=== PATIENT | male | born 1945 | race Caucasian/White ===

== ENCOUNTER → 2018-06-02 | Outpatient (CLI) | payer OTHER ==
[~2018-06-02] MED LIST: ASPI325 PO; BENA10; Bactrim Ds Tab1 EACH PO; CLOP75 PO; DICY20 PO; HYDCHL12.5 PO; LISI20 PO; LORA2 PO; METO50 PO; METO50ER PO; METR500 PO; NAPR500 PO; NIFE30ER PO; RANI150 PO; ROSU10TA PO
[2018-06-02 10:43] LABS: BASOPHILS ABSOLUTE AUTO 0.05 K/mm3 (0.00-0.23); BASOPHILS PERCENT AUTO 1 % (0-2); EOSINOPHILS ABSOLUTE AUTO 0.02 K/mm3 (0.00-0.68); EOSINOPHILS PERCENT AUTO 0 % (0-6); Hematocrit 48.3 % (37.0-53.0); Hemoglobin 17.1 g/dL (13.5-17.5); IMMATURE GRAN ABSOLUTE AUTO 0.01 K/mm3 (0.00-0.10); IMMATURE GRAN PERCENT AUTO 0 % (0-1); LYMPHOCYTES ABSOLUTE AUTO 0.75 K/mm3 (0.84-5.20); LYMPHOCYTES PERCENT AUTO 13 % (21-46); MONOCYTES PERCENT AUTO 9 % (4-13); Mean Corpuscular HGB 33.8 pg (26.0-34.0); Mean Corpuscular HGB Conc 35.4 g/dL (31.5-36.5); Mean Corpuscular Volume 96 fL (80-100); Mean Platelet Volume 10.8 fL (9.1-12.4); NEUTROPHILS ABSOLUTE AUTO 4.31 K/mm3 (1.96-9.15); NEUTROPHILS PERCENT AUTO 76 % (41-73); Platelet Count 138 K/mm3 (150-400); RDW Coefficient Variation 13.4 % (11.7-14.2); RDW Standard Deviation 47.1 fL (35.1-46.3); Red Blood Cell Count 5.06 M/mm3 (4.30-5.90); White Blood Cell Count 5.64 K/mm3 (4.00-11.30)
[2018-06-02 10:55] LABS: Alanine Aminotransfer (ALT/SGP 67 U/L (12-78); Albumin, Blood 4.1 g/dL (3.4-5.0); Alk Phos 102 U/L (40-126); Anion Gap 14 mmol/L (6-16); Aspartate Aminotrans (AST/SGOT 73 U/L (12-37); Blood Urea Nitrogen 7 mg/dL (8-24); Bun/Creatinine Ratio 7.2 (12.0-20.0); CO2, Blood 21 mmol/L (21-32); Chloride, Blood 102 mmol/L (98-108); Creatinine, Blood 0.97 mg/dL (0.60-1.20); Glomerular Filtration Rate >60 (60-); Glucose, Blood 111 mg/dL (70-99); Potassium, Blood 4.1 mmol/L (3.5-5.5); Sodium, Blood 137 mmol/L (136-145); Total Protein, Blood 8.1 g/dL (6.4-8.2)
== END ==
LOC: LAB SHORT 10:39
PROVIDERS: Physician Assistant Medical
DX: R10.84 Generalized abdominal pain (principal)
CPT/HCPCS: 80053; 83690; 85025

== ENCOUNTER 2020-01-28 22:27 | Emergency (ER) | payer OTHER ==
[~2020-01-28] VITALS: Ht 175.3 cm; Wt 90.7 kg
[~2020-01-28 22:27] MED LIST changes: +FURO20 PO; +Klor-Con 1010 MEQ PO; +NORVASC10 MG PO; +XARELTO10 MG PO
[2020-01-28 22:50] LABS: BASOPHILS ABSOLUTE AUTO 0.06 K/mm3 (0.00-0.23); BASOPHILS PERCENT AUTO 1 % (0-2); EOSINOPHILS ABSOLUTE AUTO 0.08 K/mm3 (0.00-0.68); EOSINOPHILS PERCENT AUTO 1 % (0-6); Hematocrit 41.3 % (37.0-53.0); Hemoglobin 13.5 g/dL (13.5-17.5); IMMATURE GRAN ABSOLUTE AUTO 0.01 K/mm3 (0.00-0.10); IMMATURE GRAN PERCENT AUTO 0 % (0-1); LYMPHOCYTES ABSOLUTE AUTO 1.33 K/mm3 (0.84-5.20); LYMPHOCYTES PERCENT AUTO 24 % (21-46); MONOCYTES ABSOLUTE AUTO 0.76 K/mm3 (0.16-1.47); MONOCYTES PERCENT AUTO 14 % (4-13); Mean Corpuscular HGB 32.2 pg (26.0-34.0); Mean Corpuscular HGB Conc 32.7 g/dL (31.5-36.5); Mean Corpuscular Volume 99 fL (80-100); Mean Platelet Volume 11.8 fL (9.1-12.4); NEUTROPHILS ABSOLUTE AUTO 3.28 K/mm3 (1.96-9.15); NEUTROPHILS PERCENT AUTO 59 % (41-73); Platelet Count 151 K/mm3 (150-400); RDW Coefficient Variation 13.6 % (11.7-14.2); RDW Standard Deviation 49.9 fL (35.1-46.3); Red Blood Cell Count 4.19 M/mm3 (4.30-5.90); White Blood Cell Count 5.52 K/mm3 (4.00-11.30)
[2020-01-28 23:11] LABS: Alanine Aminotransfer (ALT/SGP 42 U/L (12-78); Albumin, Blood 2.9 g/dL (3.4-5.0); Albumin/Globulin Ratio 0.8 (0.8-1.8); Alk Phos 139 U/L (50-136); Anion Gap 12 mmol/L (6-16); Aspartate Aminotrans (AST/SGOT 72 U/L (12-37); Bilirubin, Total 0.8 mg/dL (0.1-1.0); Blood Urea Nitrogen 7 mg/dL (8-24); Bun/Creatinine Ratio 13.7 (12.0-20.0); CO2, Blood 19 mmol/L (21-32); Calcium, Blood 8.2 mg/dL (8.5-10.1); Chloride, Blood 109 mmol/L (98-108); Creatinine, Blood 0.51 mg/dL (0.60-1.20); Globulin, Blood 3.6 g/dL (2.2-4.0); Glomerular Filtration Rate >60 (60-); Glucose, Blood 88 mg/dL (70-99); Potassium, Blood 3.7 mmol/L (3.5-5.5); Sodium, Blood 140 mmol/L (136-145); Total Protein, Blood 6.5 g/dL (6.4-8.2); Troponin I <0.015 ng/mL (0.000-0.040)
[2020-01-28 23:26] LABS: Ethanol (Alcohol), Blood, Med 64 mg/dL
[2020-01-29] MEDS ORDERED: Bumetanide1 MG PO (02:42)
== END 2020-01-29 03:06 | disposition home or self-care (01) ==
LOC: ER 22:27
PROVIDERS: Emergency Medicine
DX: R07.9 Chest pain, unspecified (principal); I10 Essential (primary) hypertension; E78.5 Hyperlipidemia, unspecified; I25.10 Atherosclerotic heart disease of native coronary artery without angina pectoris; Z79.899 Other long term (current) drug therapy; Z87.891 Personal history of nicotine dependence; Z88.5 Allergy status to narcotic agent
CPT/HCPCS: 36415; 71046; 80053; 83690; 83880; 84484; 85025; 93005; 93010; 99285-25; G0480

== ENCOUNTER 2020-02-08 08:36 | Day surgery (SDC) | payer OTHER ==
[~2020-02-08] VITALS: Ht 175.3 cm; Wt 89.0 kg
[~2020-02-08 08:36] MED LIST changes: +Bumetanide1 MG PO
== END 2020-02-08 10:20 | disposition home or self-care (01) ==
LOC: ORSCSDS 08:36
PROVIDERS: Surgery
PROC: 0DJD8ZZ Inspection of Lower Intestinal Tract, Via Natural or Artificial Opening Endoscopic (ICD-10-PCS; principal; 2020-02-08 09:45)
DX: R19.4 Change in bowel habit (principal); D37.4 Neoplasm of uncertain behavior of colon; R10.84 Generalized abdominal pain; I10 Essential (primary) hypertension; I25.10 Atherosclerotic heart disease of native coronary artery without angina pectoris; K76.0 Fatty (change of) liver, not elsewhere classified; Z79.01 Long term (current) use of anticoagulants; Z79.899 Other long term (current) drug therapy; Z87.891 Personal history of nicotine dependence
CPT/HCPCS: J0461; J2405; J2704; J7120

== ENCOUNTER 2020-05-02 16:48 | Inpatient (IN) | payer OTHER ==
[~2020-05-02] VITALS: Ht 172.7 cm; Wt 90.8 kg
[~2020-05-02 16:48] MED LIST changes: -NORVASC10 MG PO; -XARELTO10 MG PO
[2020-05-02 17:33] LABS: BASOPHILS ABSOLUTE AUTO 0.04 K/mm3 (0.00-0.23); BASOPHILS PERCENT AUTO 0 % (0-2); EOSINOPHILS ABSOLUTE AUTO 0.02 K/mm3 (0.00-0.68); EOSINOPHILS PERCENT AUTO 0 % (0-6); Hematocrit 33.3 % (37.0-53.0); Hemoglobin 10.3 g/dL (13.5-17.5); IMMATURE GRAN ABSOLUTE AUTO 0.05 K/mm3 (0.00-0.10); IMMATURE GRAN PERCENT AUTO 1 % (0-1); LYMPHOCYTES PERCENT AUTO 14 % (21-46); MONOCYTES ABSOLUTE AUTO 1.43 K/mm3 (0.16-1.47); MONOCYTES PERCENT AUTO 13 % (4-13); Mean Corpuscular HGB 24.5 pg (26.0-34.0); Mean Corpuscular HGB Conc 30.9 g/dL (31.5-36.5); Mean Corpuscular Volume 79 fL (80-100); Mean Platelet Volume 11.6 fL (9.1-12.4); NEUTROPHILS ABSOLUTE AUTO 7.85 K/mm3 (1.96-9.15); NEUTROPHILS PERCENT AUTO 72 % (41-73); Platelet Count 209 K/mm3 (150-400); RDW Coefficient Variation 16.6 % (11.7-14.2); RDW Standard Deviation 46.7 fL (35.1-46.3); Red Blood Cell Count 4.21 M/mm3 (4.30-5.90); White Blood Cell Count 10.89 K/mm3 (4.00-11.30)
[2020-05-02 17:47] LABS: International Normalized Ratio 3.34; Prothrombin Time Results 33.4 Sec (9.7-11.5)
[2020-05-02 17:48] LABS: Magnesium, Blood 2.3 mg/dL (1.6-2.4)
[2020-05-02 17:49] LABS: Base Excess Venous 0 mmol/L; Bicarbonate Venous 24.5 mmol/L (24.0-30.0); PCO2 Venous 29.4 mmHg (38-42); PO2 Venous 37.8 mmHg (38-42)
[2020-05-02 17:54] LABS: Alanine Aminotransfer (ALT/SGP 32 U/L (12-78); Albumin, Blood 2.2 g/dL (3.4-5.0); Albumin/Globulin Ratio 0.6 (0.8-1.8); Alk Phos 133 U/L (50-136); Anion Gap 11 mmol/L (6-16); Aspartate Aminotrans (AST/SGOT 38 U/L (12-37); Bilirubin, Total 2.2 mg/dL (0.1-1.0); Blood Urea Nitrogen 11 mg/dL (8-24); Bun/Creatinine Ratio 12.2 (12.0-20.0); CO2, Blood 24 mmol/L (21-32); Calcium, Blood 8.4 mg/dL (8.5-10.1); Chloride, Blood 100 mmol/L (98-108); Globulin, Blood 3.9 g/dL (2.2-4.0); Glomerular Filtration Rate >60 (60-); Glucose, Blood 120 mg/dL (70-99); Potassium, Blood 2.3 mmol/L (3.5-5.5); Sodium, Blood 135 mmol/L (136-145); Total Protein, Blood 6.1 g/dL (6.4-8.2)
[2020-05-02 19:06] LABS: Source, Urine Voided
[2020-05-02 19:12] LABS: Bilirubin, Urine Neg (Neg); Blood, Urine 2+ (Neg); Glucose Qualitative, Urine Neg (Neg); Ketones, Urine Neg (Neg); Leukocyte Esterase, Urine 3+ (Neg); Nitrite, Urine Neg (Neg); Protein, Urine 1+ (Neg); Urobilinogen, Urine 1+ (Normal); pH, Urine 6.5 (5.0-8.0)
[2020-05-02 19:30] LABS: Appearance, Urine Hazy (Clear); Color, Urine Yellow (P-Yellow)
[2020-05-02 19:32] LABS: Bacteria Mod /hpf; Red Blood Cells, Urine 0-2 /hpf (0-2); Squamous Epithelial Cells Few /hpf (Few); White Blood Cells, Urine 50-100 /hpf (0-5)
[2020-05-02] MEDS ORDERED: FUROSEMIDE20 MG PO (20:53)
[2020-05-02] MEDS ORDERED: SPIRONOLACTONE25 MG PO (20:53)
[2020-05-02] MEDS ORDERED: LISI20 PO (20:54)
[2020-05-02] MEDS ORDERED: XARELTO20 MG PO (20:55)
[2020-05-02] MEDS ORDERED: ROSU10TA PO (20:55)
[2020-05-02] MEDS ORDERED: NORVASC10 MG PO (20:57)
[2020-05-02] MEDS ORDERED: SENN187 PO (21:07)
[2020-05-02 23:20] LABS: Hematocrit 31.2 % (37.0-53.0); Hemoglobin 9.6 g/dL (13.5-17.5)
[2020-05-02 23:38] LABS: Anion Gap 9 mmol/L (6-16); Blood Urea Nitrogen 12 mg/dL (8-24); Bun/Creatinine Ratio 13.3 (12.0-20.0); CO2, Blood 24 mmol/L (21-32); Calcium, Blood 7.7 mg/dL (8.5-10.1); Chloride, Blood 104 mmol/L (98-108); Glomerular Filtration Rate >60 (60-); Glucose, Blood 115 mg/dL (70-99); Sodium, Blood 137 mmol/L (136-145)
[2020-05-03 05:21] LABS: BASOPHILS ABSOLUTE AUTO 0.03 K/mm3 (0.00-0.23); BASOPHILS PERCENT AUTO 0 % (0-2); EOSINOPHILS ABSOLUTE AUTO 0.01 K/mm3 (0.00-0.68); EOSINOPHILS PERCENT AUTO 0 % (0-6); Hematocrit 28.8 % (37.0-53.0); IMMATURE GRAN ABSOLUTE AUTO 0.03 K/mm3 (0.00-0.10); IMMATURE GRAN PERCENT AUTO 0 % (0-1); LYMPHOCYTES PERCENT AUTO 18 % (21-46); MONOCYTES ABSOLUTE AUTO 1.01 K/mm3 (0.16-1.47); MONOCYTES PERCENT AUTO 12 % (4-13); Mean Corpuscular HGB 24.5 pg (26.0-34.0); Mean Corpuscular HGB Conc 31.3 g/dL (31.5-36.5); Mean Corpuscular Volume 79 fL (80-100); NEUTROPHILS ABSOLUTE AUTO 5.88 K/mm3 (1.96-9.15); NEUTROPHILS PERCENT AUTO 70 % (41-73); Platelet Count 162 K/mm3 (150-400); RDW Coefficient Variation 16.6 % (11.7-14.2); RDW Standard Deviation 46.5 fL (35.1-46.3); Red Blood Cell Count 3.67 M/mm3 (4.30-5.90); White Blood Cell Count 8.46 K/mm3 (4.00-11.30)
[2020-05-03 05:35] LABS: International Normalized Ratio 3.09
[2020-05-03 05:39] LABS: Albumin, Blood 1.8 g/dL (3.4-5.0); Anion Gap 4 mmol/L (6-16); Blood Urea Nitrogen 11 mg/dL (8-24); Bun/Creatinine Ratio 12.3 (12.0-20.0); CO2, Blood 28 mmol/L (21-32); Calcium, Blood 7.6 mg/dL (8.5-10.1); Chloride, Blood 104 mmol/L (98-108); Creatinine, Blood 0.89 mg/dL (0.60-1.20); Glomerular Filtration Rate >60 (60-); Glucose, Blood 108 mg/dL (70-99); Lactate Dehydrogenase (Ld),Bld 188 U/L (100-240); Potassium, Blood 3.5 mmol/L (3.5-5.5); Sodium, Blood 136 mmol/L (136-145)
--- NOTE | 2020-05-03 06:11 | NUR ---
SHIFT SUMMARY NO ACUTE CHANGES T/O NIGHT. PT DENIES C/P, SOB. PT WOKE UP COMPLAINING OF ABD INCISION PAIN. DENIED PAIN MEDS. REPOSITIONED TO COMFORT. NPO AFTER MIDNIGHT FOR ANGIOGRAM ON 05/03/20. CALL LIGHT IN REACH.
--- NOTE | 2020-05-03 06:22 | NUR ---
SHIFT SUMMARY PATIENT HAD A RESTLESS NIGHT C/O BEING COLD T/O THE NIGHT. PT HAS 4+ EDEMA IN BLE. GENERALIZED WEAKNESS. LACTIC ACID IS TRENDING DOWN FROM 5.2 TO 3.1 WITH LR @100MLS/HR AND ANTIBIOTICS. K+ IS TRENDING UP FROM 2.3 TO 3.0. PT DENIES SOB, C/P. PT REPORTS DYSPNEA WITH EXERTION. PT REPORTS NO BM FOR 3 DAYS. LACTULOSE TO START IN AM. NO CHEM PROPHYLAXIS. SCD'S IN USE. CALL LIGHT IN REACH.
--- NOTE | 2020-05-03 14:23 | NUR ---
PT CURRENTLY OFF TO IMAGING FOR PARACENTESIS.
[2020-05-03 14:35] LABS: Automated BF WBC Count 0.062 K/mm3 (0-999); Body Fluid WBC Count 62 /mm3 (0-999)
[2020-05-03 14:54] LABS: Albumin, Body Fluid 0.1 g/dL; Glucose, Body Fluid 122 mg/dL; Lactate Dehydrogenase, Body Fl 23 U/L; Protein, Body Fluid 0.4 g/dL
[2020-05-03 14:58] LABS: RBC Count, Body Fluid 49 /mm3 (0-0)
[2020-05-03 15:02] LABS: Total Cell Count, Body Fluid 100
[2020-05-03 15:03] LABS: Appearance, Body Fluid Cloudy (Clear); Color, Body Fluid Yellow (None-Yellow)
--- NOTE | 2020-05-03 17:46 | NUR ---
PT SUMMARY: PT ALERT AND ORIENTED X4, VITALS HAS BEEN STABLE FOR THE SHIFT, HRR AFIB ON THE 90'S INCREASES UP TO 120'S WITH EXERTION, SATS ABOVE 92% ON ROOMAIR SOB WITH EXERTION. USES FWW FOR TRASNFERS 1PA SBA. PT WAS ADVISED TO USE COMMODE FOR A MEAN TIME SINCE PT WAS TAKING LACTULOSE AND HAS BEEN USING THE TOILET OFTEN, PT HAD 2 BM TODAY PER PATIENT, SOFT AND MEDIUM DARK BROWN IN COLOR, CONTINUES ON PROTONIX GTT AND LR AT 100MLS/HR. PARACENTESIS DONE 1.5L OF FLUID OUT FROM ABDOMEN, ACCESS SITE ON RIGHT LOWER SIDE OF ABDOMEN DRESSING IN PLACE, SITE CONSISTENTLY LEAKING FLUID, DRESSINGS CHANGED X3. FFP GIVEN PRE PARACENTESIS AND ALBUMIN POST PARACENTESIS. 4+ PITTING EDEMA STILL PRESENT ON BLE, LEGS ELAVATED ON PILLOWS, DR MARTINEZ IS AWARE. PLAN TO RESUME HOME MEDS TOMORROW ESPECIALLY BLOOD THINNER D/T HX OF PE. WAS UPDATED VIA PHONE X2 REGARDING PT. PT CONTINUES ON CLEAR LIQUID DIET TOLERATING WELL. PT CURRENTLY RESTING IN BED CALL LIGHTS WITHIN REACH. WILL REPORT TO ONCOMING SHIFT
[2020-05-04 04:20] LABS: BASOPHILS ABSOLUTE AUTO 0.02 K/mm3 (0.00-0.23); BASOPHILS PERCENT AUTO 0 % (0-2); EOSINOPHILS ABSOLUTE AUTO 0.02 K/mm3 (0.00-0.68); EOSINOPHILS PERCENT AUTO 0 % (0-6); Hemoglobin 7.7 g/dL (13.5-17.5); IMMATURE GRAN ABSOLUTE AUTO 0.02 K/mm3 (0.00-0.10); IMMATURE GRAN PERCENT AUTO 0 % (0-1); LYMPHOCYTES PERCENT AUTO 16 % (21-46); MONOCYTES ABSOLUTE AUTO 0.98 K/mm3 (0.16-1.47); MONOCYTES PERCENT AUTO 15 % (4-13); Mean Corpuscular HGB 24.3 pg (26.0-34.0); Mean Corpuscular HGB Conc 30.8 g/dL (31.5-36.5); Mean Corpuscular Volume 79 fL (80-100); Mean Platelet Volume 11.3 fL (9.1-12.4); NEUTROPHILS PERCENT AUTO 68 % (41-73); Platelet Count 141 K/mm3 (150-400); RDW Coefficient Variation 16.5 % (11.7-14.2); RDW Standard Deviation 46.5 fL (35.1-46.3); Red Blood Cell Count 3.17 M/mm3 (4.30-5.90); White Blood Cell Count 6.74 K/mm3 (4.00-11.30)
[2020-05-04 04:39] LABS: Alanine Aminotransfer (ALT/SGP 25 U/L (12-78); Albumin, Blood 2.1 g/dL (3.4-5.0); Albumin/Globulin Ratio 0.7 (0.8-1.8); Alk Phos 99 U/L (50-136); Anion Gap 6 mmol/L (6-16); Aspartate Aminotrans (AST/SGOT 33 U/L (12-37); Bilirubin, Total 2.2 mg/dL (0.1-1.0); Blood Urea Nitrogen 11 mg/dL (8-24); Bun/Creatinine Ratio 12.5 (12.0-20.0); CO2, Blood 27 mmol/L (21-32); Calcium, Blood 7.6 mg/dL (8.5-10.1); Chloride, Blood 104 mmol/L (98-108); Creatinine, Blood 0.88 mg/dL (0.60-1.20); Glomerular Filtration Rate >60 (60-); Glucose, Blood 93 mg/dL (70-99); Potassium, Blood 2.7 mmol/L (3.5-5.5); Sodium, Blood 137 mmol/L (136-145); Total Protein, Blood 5.1 g/dL (6.4-8.2)
--- NOTE | 2020-05-04 05:10 | NUR ---
PROVIDER CALLED LAB RESULTS CAME BACK WITH A DECREASE IN HGB FROM 9.1 TO 7.7. NOTIFIED PROVIDER. GI CONSULT EVALUATED PT. ENDOSCOPY PLANNED FOR TODAY. PROTONIX DRIP INF.
--- NOTE | 2020-05-04 05:52 | NUR ---
SHIFT SUMMARY PT DID NOT REST MUCH. LASIX WAS GIVEN BEFORE BED. PT USED URINAL T/O NIGHT ALMOST EVERY HOUR. PARACENTESIS DRESSING SITE WAS SATURATED. CHANGED DRESSINGS TO ABD PAD. PT DENIES SOB, C/P AT THIS TIME. EVEN UNLABORED BREATHING, LUNG SOUNDS CLEAR. 4+ PITTING EDEMA IN BLE. DR. CARMONA VISITED PT. ENDOSCOPY TODAY. CALL LIGHT IN REACH.
--- NOTE | 2020-05-04 08:42 | NUR ---
AM NOTE... ASSUMED CARE OF PT APROX 0700, PT IS A&Ox4 AND WAS ADMITTED FOR HYPOKALEMIA. PT IS NPO FOR EGD THIS AM. PT'S VS STABLE AT THIS TIME. L/S CLEAR T/O DIM IN THE BASES PT IS ON RA. BT PRESENT AND HYPERACTIVE ABD IS MOD DISTENDED, FIRM BUT NONTENDER TO PALP. PT HAS 4+ PITTING EDEMA TO HIS BLE AND DEPENDENT EDEMA TO HIS ABD/BACK. PT HAS LR RUNNING AT 100MLS/HR AND PROTONIX AT 10MLS/HR. CALL LIGHT IN REACH WILL CONTINUE TO MONITOR.
--- NOTE | 2020-05-04 10:24 | NUR ---
05/04/20 CAROLE WARD History, Chart, Medications and Allergies reviewed before start of procedure. O2 VIA N/C INTACT THROUGHOUT SEDATION/PROCEDURE. 3-LEAD EKG REVIEWED WITH PHYSICIAN PRIOR TO START OF PROCEDURE. MONITOR INTACT WITH CONTINUOUS PULSE OXIMETRY AND INTERMITTENT BP. MAC WITH DR. LEON.
--- NOTE | 2020-05-04 10:58 | NUR ---
PT UPDATE.... PT RETURNED FROM EGD, HE IS AWAKE AND ALERT. VS STABLE. PT IS TO HAVE COLONOSCOPY TOMORROW. 1 UNIT OF PRBCs ORDRED TO BE TRANSFUSED. PT HAS MINIMAL IV ACCESS, CHARGE AWARE AND ATTEMPTING TO START A LINE. CALL LIGHT IN REACH WILL CONTINUE TO MONITOR.
--- NOTE | 2020-05-04 16:18 | NUR ---
Pt resting in bed upon arrival. Pt denies pain, nausea, and anxiety. Non verbal indicators suggest mild anxiety and SOB as evidenced by speaking in 2 to 3 word sentences with taking deep breathes in between. Pt does not make eye contact and reports looking forward to going home. Engaged in therapeutic discussion and listening with Pt showing little interest in having conversation. This RN ended visit. Spoke with Bedside RN Jenae discussed case and concerns. Palliative Care will remain available.
--- NOTE | 2020-05-04 18:37 | NUR ---
SHIFT SUMMARY... NO ACUTE NEGATIVE CHANGES NOTED THIS SHIFT. PT'S VS HAVE BEEN STABLE. PT HAD HIS EDG THIS AM AND NOTHING WAS FOUND, PT IS TO HAVE COLONOSCOPY TOMORROW. PT HAD 1 UNIT OF PRBCS TRANSFUSED THIS SHIFT, PT TOLERATED THIS WELL. PT WAS GIVEN BEDBATH AND LINEN CHANGE. PT GOT UP AND WALKED INTO THE BATHROOM WITH 1P SBA AND FWW. CALL LIGHT IN REACH WILL CONTINUE TO MONITOR UNTIL REPORT IS GIVEN TO ONCOMING RN.
[2020-05-04 20:15] LABS: BASOPHILS ABSOLUTE AUTO 0.02 K/mm3 (0.00-0.23); BASOPHILS PERCENT AUTO 0 % (0-2); EOSINOPHILS ABSOLUTE AUTO 0.05 K/mm3 (0.00-0.68); EOSINOPHILS PERCENT AUTO 1 % (0-6); Hematocrit 27.4 % (37.0-53.0); Hemoglobin 8.7 g/dL (13.5-17.5); IMMATURE GRAN ABSOLUTE AUTO 0.01 K/mm3 (0.00-0.10); IMMATURE GRAN PERCENT AUTO 0 % (0-1); LYMPHOCYTES ABSOLUTE AUTO 0.91 K/mm3 (0.84-5.20); LYMPHOCYTES PERCENT AUTO 15 % (21-46); MONOCYTES ABSOLUTE AUTO 0.86 K/mm3 (0.16-1.47); MONOCYTES PERCENT AUTO 14 % (4-13); Mean Corpuscular HGB 25.1 pg (26.0-34.0); Mean Corpuscular HGB Conc 31.8 g/dL (31.5-36.5); Mean Corpuscular Volume 79 fL (80-100); Mean Platelet Volume 11.6 fL (9.1-12.4); NEUTROPHILS ABSOLUTE AUTO 4.39 K/mm3 (1.96-9.15); NEUTROPHILS PERCENT AUTO 70 % (41-73); Platelet Count 149 K/mm3 (150-400); RDW Coefficient Variation 16.5 % (11.7-14.2); RDW Standard Deviation 46.7 fL (35.1-46.3); Red Blood Cell Count 3.46 M/mm3 (4.30-5.90); White Blood Cell Count 6.24 K/mm3 (4.00-11.30)
[2020-05-05 05:12] LABS: Hematocrit 27.3 % (37.0-53.0); Hemoglobin 8.6 g/dL (13.5-17.5); Mean Corpuscular HGB 25.1 pg (26.0-34.0); Mean Corpuscular HGB Conc 31.5 g/dL (31.5-36.5); Mean Corpuscular Volume 80 fL (80-100); RDW Coefficient Variation 16.4 % (11.7-14.2); RDW Standard Deviation 46.3 fL (35.1-46.3); Red Blood Cell Count 3.43 M/mm3 (4.30-5.90); White Blood Cell Count 6.36 K/mm3 (4.00-11.30)
[2020-05-05 05:13] LABS: BASOPHILS ABSOLUTE AUTO 0.03 K/mm3 (0.00-0.23); BASOPHILS PERCENT AUTO 1 % (0-2); EOSINOPHILS ABSOLUTE AUTO 0.08 K/mm3 (0.00-0.68); EOSINOPHILS PERCENT AUTO 1 % (0-6); IMMATURE GRAN ABSOLUTE AUTO 0.01 K/mm3 (0.00-0.10); IMMATURE GRAN PERCENT AUTO 0 % (0-1); LYMPHOCYTES ABSOLUTE AUTO 0.98 K/mm3 (0.84-5.20); LYMPHOCYTES PERCENT AUTO 16 % (21-46); MONOCYTES ABSOLUTE AUTO 0.99 K/mm3 (0.16-1.47); MONOCYTES PERCENT AUTO 16 % (4-13); NEUTROPHILS ABSOLUTE AUTO 4.23 K/mm3 (1.96-9.15); NEUTROPHILS PERCENT AUTO 67 % (41-73)
[2020-05-05 05:16] LABS: Mean Platelet Volume 11.6 fL (9.1-12.4); Platelet Count 135 K/mm3 (150-400)
[2020-05-05 05:32] LABS: Alanine Aminotransfer (ALT/SGP 23 U/L (12-78); Albumin, Blood 1.8 g/dL (3.4-5.0); Albumin/Globulin Ratio 0.6 (0.8-1.8); Alk Phos 101 U/L (50-136); Anion Gap 6 mmol/L (6-16); Aspartate Aminotrans (AST/SGOT 33 U/L (12-37); Bilirubin, Total 3.4 mg/dL (0.1-1.0); Blood Urea Nitrogen 9 mg/dL (8-24); CO2, Blood 26 mmol/L (21-32); Calcium, Blood 7.2 mg/dL (8.5-10.1); Chloride, Blood 105 mmol/L (98-108); Glomerular Filtration Rate >60 (60-); Glucose, Blood 77 mg/dL (70-99); Potassium, Blood 2.9 mmol/L (3.5-5.5); Sodium, Blood 137 mmol/L (136-145); Total Protein, Blood 4.8 g/dL (6.4-8.2)
--- NOTE | 2020-05-05 05:55 | NUR ---
SHIFT SUMMARY PT SLEEPING IN ROOM COMFORTABLY AT THIS TIME. NO AUCTE CHANGES IN STATUS T/O NIGHT. PT SLEPT WELL, WOKE TO USE BSC W/O ASSIST X3 DURING NIGHT. RESP EVEN UNLABORED ON RA WHILE AT REST W/ SATS >92%. PT REPORTS STILL SOME DYSPNEA W/ EXERTION. SOME LEAKING OF ABD FLUID FROM [place] SITE OF PARACENTESIS ON R SIDE ABD. DRESSING PLACED, C/D/I. PT HAS 1/2 NS INSUFING IN POWERGLIDE TO JETT. DENIED ANY CP. PT TO HAVE COLENOSCOPY THIS AFTERNOON. PT TO START PREP AT 0700 AND NPO AT 1200. CALL LIGHT IN REACH.
[2020-05-05 08:35] LABS: International Normalized Ratio 1.61; Prothrombin Time Results 16.8 Sec (9.7-11.5)
--- NOTE | 2020-05-05 09:18 | NUR ---
AM NOTE... ASSUMED CARE OF PT APROX 0700. PT IS A&Ox4 WITH SOME MOMENTS OF FORGETFULNESS. PT IS TO HAVE COLONOSCOPY THIS AFTERNOON AND IS CURRENTLY TAKING THE PREP. PT'S VS STABLE AT THIS TIME. L/S CLEAR T/O ON RA. BT PRESENT AND HYPERACTIVE, ACSITIES PRESENT. PT HAS 4+ PITTING EDEMA TO HIS BLE AND DEPENDENT EDEMA TO THE REST OF HIS BODY. PT IS IN AFIB IN THE 80'S. CALL LIGHT IN REACH WILL CONTINUE TO MONITOR.
--- NOTE | 2020-05-05 15:59 | NUR ---
PT INTO SDS FROM PCU TRANSFERRED VIA GURNEY. History, Chart, Medications and Allergies reviewed before start of procedure. Lungs clear T/O to Auscultation. Patient confirms NPO status and agrees with scheduled surgery.
--- NOTE | 2020-05-05 16:23 | NUR ---
05/05/20 1623 CAROLE RETANA History, Chart, Medications and Allergies reviewed before start of procedure. 3-LEAD EKG REVIEWED WITH PHYSICIAN PRIOR TO START OF PROCEDURE. O2 VIA N/C INTACT THROUGHOUT SEDATION/PROCEDURE. MONITOR INTACT WITH CONTINUOUS PULSE OXIMETRY AND INTERMITTENT BP. MAC WITH DR. ROGEL.
--- NOTE | 2020-05-05 18:30 | NUR ---
SHIFT SUMMARY... NO ACUTE NEGATIVE CHANGES NOTED THIS SHIFT. PT HAS COLONOSCOPY AND RETURNED TO ROOM APROX 1800. PT'S VS STABLE. PT HAS BEEN UP TO THE BSC AND HAS WALKED TO THE BATHROOM WITH SBA T/O THIS SHIFT. PT'S DIET IS ADVANCE TOLERATED PER DR. CARMONA. PT'S UPDATED ON THE PROCEDURE, HIS CONDITION AND PLAN OF CARE. HIS TOLD THIS RN ABOUT HERNIA MESH THAT SHE WAS CONCERNED THAT IT MIGHT BE "PART OF THE PROBLEM". PT WAS VERY AWAKE AND ALERT WHEN HE RETURNED FROM HIS PROCEDURE. CALL LIGHT IN REACH WILL CONTINUE TO MONITOR UNTIL REPORT IS GIVEN TO ONCOMING RN.
--- NOTE | 2020-05-06 02:06 | NUR ---
ASSUMED CARE OF PATIENT AT [facility] [address] FROM PRANAV Cui RN. PATIENT ALERT AND ORIENTED TO SELF, AND LOCATION. PATIENT FORGETFUL; USES CALL LIGHT OCCASIONALLY. PATIENT WAS STANDING ON SIDE OF BED SHORTLY AFTER SHIFT CHANGE TRYING TO USE URINAL AND MAROON LOOSE LIQUID BM DRIPPING ON THE GROUND. PATIENT S/P COLONOSCOPY 05/05 W/ POLYPS REMOVED PER DAYSHIFT; PATIENT REPORT "UH, I THINK I NEED HELP IN HERE". PATIENT ONE ASSIST TO BEDSIDE COMMODE; ATTENDS PLACED; USES URINAL IN BED. PATIENT DENIES PAIN, NUMBNESS, TINGLING, DIZZINESS OR NAUSEA. NSR W/ ALOT OF PVCS ON TELE; OXYGEN SATURATION ABOVE 90% ON ROOM AIR. PG INFUSING IVF PER ORDER. PATIENT TOLERATED DINNER WELL. PATIENT CURRENTLY RESTING IN BED; CALL LIGHT IN REACH; BED IN LOWEST POSISTION; BED ALARM; WILL CONTINUE TO MONITOR AND ASSESS UNTIL END OF SHIFT.
--- NOTE | 2020-05-06 06:00 | NUR ---
PATIENT SLEPT ABOUT EIGHT HOURS. PATIENT HAS DRAINAGE FROM RIGHT SIDE; OLD PARACENTESIS SITE; DRESSING CHANGED. VSS. NO OTHER ACUTE CHANGES TO REPORT. WILL CONTINUE TO MONITOR AND ASSESS UNTIL END OF SHIFT.
--- NOTE | 2020-05-06 06:06 | NUR ---
UPDATE; PATIENT REPORTS THAT "I'M DONE"; REPORTS HE JUST WANTS TO GO TO [facility]; "I JUST WANT TO GO TO SLEEP AND NOT WAKE UP"; PATIENT REPORTS HE WANTS TO GET DISCHARGED TODAY. PATIENT REPORTS HE IS NOT INTERESTED IN COMFORT CARE. REPORTS HE IS TIRED OF LAYING IN BED; REPORTS HE "WON'T BE ABLE TO DO ANYTHING AT HOME". PATIENT TO CALL . THIS RN ATTEPMTED TO CALL PALLIATIVE CARE; NO ANSWER.
[2020-05-06 06:09] LABS: BASOPHILS ABSOLUTE AUTO 0.03 K/mm3 (0.00-0.23); BASOPHILS PERCENT AUTO 1 % (0-2); EOSINOPHILS ABSOLUTE AUTO 0.08 K/mm3 (0.00-0.68); EOSINOPHILS PERCENT AUTO 1 % (0-6); Hemoglobin 8.3 g/dL (13.5-17.5); IMMATURE GRAN ABSOLUTE AUTO 0.01 K/mm3 (0.00-0.10); IMMATURE GRAN PERCENT AUTO 0 % (0-1); LYMPHOCYTES ABSOLUTE AUTO 1.29 K/mm3 (0.84-5.20); LYMPHOCYTES PERCENT AUTO 21 % (21-46); MONOCYTES ABSOLUTE AUTO 0.97 K/mm3 (0.16-1.47); MONOCYTES PERCENT AUTO 16 % (4-13); Mean Corpuscular HGB 24.9 pg (26.0-34.0); Mean Corpuscular HGB Conc 31.9 g/dL (31.5-36.5); Mean Corpuscular Volume 78 fL (80-100); Mean Platelet Volume 11.7 fL (9.1-12.4); NEUTROPHILS PERCENT AUTO 61 % (41-73); Platelet Count 131 K/mm3 (150-400); RDW Coefficient Variation 16.5 % (11.7-14.2); RDW Standard Deviation 46.5 fL (35.1-46.3); Red Blood Cell Count 3.33 M/mm3 (4.30-5.90); White Blood Cell Count 6.08 K/mm3 (4.00-11.30)
[2020-05-06 06:32] LABS: Alanine Aminotransfer (ALT/SGP 26 U/L (12-78); Albumin, Blood 1.7 g/dL (3.4-5.0); Albumin/Globulin Ratio 0.5 (0.8-1.8); Alk Phos 103 U/L (50-136); Anion Gap 5 mmol/L (6-16); Aspartate Aminotrans (AST/SGOT 39 U/L (12-37); Bilirubin, Total 1.9 mg/dL (0.1-1.0); Blood Urea Nitrogen 7 mg/dL (8-24); Bun/Creatinine Ratio 7.2 (12.0-20.0); CO2, Blood 27 mmol/L (21-32); Chloride, Blood 104 mmol/L (98-108); Creatinine, Blood 0.97 mg/dL (0.60-1.20); Globulin, Blood 3.1 g/dL (2.2-4.0); Glomerular Filtration Rate >60 (60-); Glucose, Blood 98 mg/dL (70-99); Potassium, Blood 3.2 mmol/L (3.5-5.5); Sodium, Blood 136 mmol/L (136-145); Total Protein, Blood 4.8 g/dL (6.4-8.2)
--- NOTE | 2020-05-06 09:19 | NUR ---
AM NOTE... ASSUMED CARE OF PT APROX 0700. PT IS A&Ox4 WITH MOMENTS OF FORGETFULNESS. PT STATES HE IS READY TO "GO HOME AND ." PROVIDER IN THE ROOM TO SPEAK WITH PT AND FAMILY ABOUT HOSPICE/PALLIATIVE CARE. PT'S AND GRANDDAUGHTER AT THE BEDSIDE. VS STABLE AT THIS TIME. PT HAS 4+ PITTING EDEMA TO HIS BLE, AND GENERALIZED/DEPENDENT EDEMA EVERYWHERE ELSE. PT ALSO HAS A PARACENTISIS SITE THAT HAS CONTINUED TO LEAK SINCE THE DAY OF THE PROCEDURE. WILL CONTINUE TO MONITOR.
--- NOTE | 2020-05-06 10:32 | NUR ---
pt very anxious and angry. wanting all treatment stopped. wanting us to help him end everything or let him go home and take care of it. pt denies hearache, or difficulty swallowing, respirations are labored and accessory muscle use. having severe preassure in abdomen and legs with spasms and unable to urinate. family at bedside on on phone confrence. Blunt conversation with pt about his distress, advised we cannot let him hurt himself and assist him with suicide. Review of comfort only and encourged him to let us help with his severe symtoms and moral distress and anexiety he finally areed to comfort measures. Prn meds started on lowest does to assess tolerance comfort measure orders started. drew catheter placed for comfort. Review of plan of care with and children. Will review with physician if further diuresis of benefit. Goal is to get him some releif and rest and then have further discussion of plan. He is struggling with acceptance of loss of control and function. Will faciltate him to express his fear and anger then start on a plan home.
--- NOTE | 2020-05-06 13:38 | NUR ---
multiple visits to pt and . pt resting breathing less labored. continues to ask about him getting assistance. she fears he will be upset because they promise eachother years ago they would not suffer. Started the hospice conversation and encouraged acceptance of the changes in life. family coming in to help their mother with accepting help from them.
--- NOTE | 2020-05-06 15:09 | NUR ---
PT UPDATE/TRANSFER... PT WAS MADE COMFORT CARE PER PT'S AND FAMILY'S WISHES. REPORT CALLED TO MEDICAL FLOOR RN. ALL OF PT'S BELONGINGS PACKED AND SENT WITH THE FAMILY. PT IS CURRENTLY RESTING WITH EYES CLOSED, PT LOOKS MORE RELAXED AND COMFORTABLE SINCE COMFORT CARE ORDERS WERE OBTAINED.
--- NOTE | 2020-05-06 16:03 | NUR ---
PT ARRIVED TO THE UNIT VIA BED AT 1600, AT BEDSIDE. PT DENIES PAIN AT THIS TIME.
--- NOTE | 2020-05-06 19:27 | NUR ---
PT RESTING QUIETLY WITHOUT NOTED ACUTE S/S PAIN. AT BEDSIDE. CALL LIGHT IN REACH. COMFORT CARE CONTINUES.
--- NOTE | 2020-05-06 21:03 | NUR ---
RESTING QUIETLY. NO NOTED SIGNS OF ACUTE DISTRES. CALL LIGHT IN REACH
--- NOTE | 2020-05-06 22:32 | NUR ---
CONTINUES TO REST WITHOUT NOTED DISTRESS. CALL LIGHT IN REACH. AT BEDSIDE. WILL CONTINUE TO MONITOR
--- NOTE | 2020-05-07 00:32 | NUR ---
VOICED APPARENT SECRETIONS HE TRIED TO COUGH UP. NO NOTED COUGHING, BUT SUCTIKON CANISTER/APPARATUS SET UP FOR COMFORT. ORAL CARE GIVEN. RESTING QUIETLY. CALL LIGHT IN REACH
--- NOTE | 2020-05-07 01:09 | NUR ---
MOANING, PAIN MED GIVEN SL. AT BEDSIDE. HOB ELEVATED FOR COMFORT. CALL LIGHT IN REACH
--- NOTE | 2020-05-07 03:23 | NUR ---
RESTING QUIETLY. CALL LIGHT IN REACH.
--- NOTE | 2020-05-07 06:06 | NUR ---
SEE MAR FOR DETAILS RE ANALGSEICS. RESTING QUIETLY. CALL LIGHT IN REACH
--- NOTE | 2020-05-07 06:07 | NUR ---
RESPOSITIONED. LINEN CHANGED DUE TO PERSPIRATION. NO NOTED ACUTE PAIN AT THIS TIME. CALLL LIGHT IN REACH
--- NOTE | 2020-05-07 10:15 | NUR ---
[facility] COMFORT CARE VISIT AND CASE CONFERENCE NOTE: Report received from [facility] Care RN who cared for pt yesterday and today's bedside nurse who also cared for pt late in clive shift yesterday. RN noting big change in status. Discussed changes, comofort indicators, her assessment, family questions and current medications prior to my visit. Visit made in room with and nithin, present. Dr Melendez rounded during my visit and spent time speaking with and daughter in east while I completed assessment. Pt is unresponsive to voice and touch. He appears extremely relaxed and comfortable. I did not note any grimacing, furrowed brow, frowning, twitching, grunting or other s/s of pain, anxiety or respiratory/other distress. He has not had pain meds since last night per . Nominal UO noted in drew drainage bag, so scant it is unmeasureable. 4+++ pitting edema to sky LE. Skin is warm and dry without mottling. Respiratory rate 5-8/min with apnic episodes of 3-6 seconds noted. Upper airway rattle noted with vibration in upper chest felt with hand on chest. FAmily expresses gratitude for his comfort and has questions re: dc planning. Discussed s/s of actively dying with them and what to anticipate they may see next. S/S reviewed that they should report to pt's RN. Report called to Dr Myers and assessment discussed with him and RN. Order obtained and entered for scopolomine patch for lessening upper airway secretions. Pt appears to be actively dying at this time and no transfer or d/c is recommended unless status changes. Family is aware. Emotional support and listening provided. FAmily encouraged to cont talking to Asim, take breaks as needed and to let us know if we can provide additional support/ comfort measures to Asim and to them. RN to contact me with changes or needs to revisit today. and medications prior to my visit.
--- NOTE | 2020-05-07 18:18 | NUR ---
SHIFT SUMMARY- PT WAS NON RESPONSIVE FOR MOST OF THIS SHIFT HE DID HAVE SOME INTERMITENT MOMENTS OF EYE OPENING AND LIMITED VERBAL RESPONSES AFTER REPOSITIONING. FAMILY AT BEDSIDE MOST OF THIS SHIFT. PALATIVE CARE NURSE VISITED THIS MORNING. HE HAS BEEN SLEEPING AND APPEARS TO BE COMFORTABLE FOR MOST OF THIS SHIFT WITH NO BROW FURROWING. OFFERED PAIN MEDICATION THROUGHOUT THIS SHIFT, FAMILY AGREED THAT HE APPEARED COMFORTABLE AND DID NOT THINK HE NEEDED IT. GAVE ONE DOSE AFTER REPOSITIONING.
--- NOTE | 2020-05-08 05:47 | NUR ---
SHIFT SUMMARY PT MOSTLY UNRESPONSIVE THIS EVENING. CAME OUT ONE TIME STATING THAT PT APPEARED TO BE IN SOME DISCOMFORT. PT MEDICATED X 1 WITH 20 MG ROXANOL AT THIS TIME. OTHERWISE THIS RN AND FAMILY AGREED THAT PT APPEARED COMFORTABLE THROUGHOUT THE NIGHT. A SMALL AMOUNT OF THROAT GURGLING BUT REPORTS THAT IT IS IMPROVED FROM NIGHT BEFORE. PT VERY EDEMATOUS THROUGHOUT WITH COPIOUS WEEPING. PADS CHANGED BENEATH PT MULTIPLE TIMES. AT BEDSIDE. NO ACUTE CHANGES THIS SHIFT. WILL CONTINUE TO MONITOR.
--- NOTE | 2020-05-08 14:15 | NUR ---
PAL CARE COMFORT CARE VISIT: Follow up comfort care visit made with and family friend at bedside. Pt remains unresponsive and appears very comfortable. states that she feels pt is very comfortable. Pt with increased resp rate since yesterday. He cont to appear to be actively dying. Family denies needs for increased support at this time.
--- NOTE | 2020-05-08 14:27 | NUR ---
Initial spiritual care note: Met with Mr. Keene's dtr at bedside. Her mom was in shower. Dtr tells me that family has come to terms with pt's passing and just want him comfortable. She expressed dissapointment that her sister could not visit as that would bring visitors to 3. She tells me that over the weekend all three were allowed in room and the inconguency is bewildering. Spoke to electrical timing device calibrator and Nursing pilot supervisor. Pt appears non-responsive and very comfortable. Family is tearful and appropriate. they are non-rastafarian. Dtr verbalized appreciaition for emotional validation and affirmation of obvious love. I will remain available.
--- NOTE | 2020-05-08 19:58 | NUR ---
1914 COMFORT CARE BEDSIDE REPORT RECIEVED FROM CORBIN GAGNON. NO ACUTE NEEDS AT THIS TIME. FAMILY AT BEDSIDE. BED IN LOWEST POSITION. TM.
--- NOTE | 2020-05-08 20:15 | NUR ---
2015 COMFORT CARE NO ACUTE CHANGES AT THIS TIME. STATES WANTS TO WAIT A BIT TO TURN. WCTM. BED IN LOWEST POSITION.
--- NOTE | 2020-05-08 21:15 | NUR ---
6 COMFORT CARE RE-CHECKED ON PATIENT; MULTIPLE HOURS SINCE REPOSITIONING. STATES WANTS PATIENT TO BE COMFORTABLE. APPEARS TO BE RESTING. SOME PHLEGM NOTED; APPEARS TO BE CLEARING THROAT. NO ACUTE CHANGES AT THIS TIME. WCTM. BED IN LOWEST POSITION. AT BEDSIDE.
--- NOTE | 2020-05-08 22:48 | NUR ---
0263 COMFORT CARE STATES APPEARS TO BE MORE UNCOMFORTABLE AND WANTS HIM TO BE COMFORTABLE; MEDICATED PER EMAR. INCREASED SECRETIONS TO BACK OF THROAT; UNREACHABLE BY BELEN; SCOPLAMINE PATCH APPEARED TO HAVE COME OFF BACK OF NECK, REATTACHED. ASKED IF WANTED PATIENT TURNED; STATED NOT AT THIS TIME AND TO CHECK BACK IN AN HOUR. WCTM.
--- NOTE | 2020-05-08 23:53 | NUR ---
8941 COMFORT CARE IN TO CHANGE AND REPOSITION PAITENT. MEDICATED FOR PAIN/ANXIETY PER EMAR. AGAIN TRIED TO REACH SECRETIONS AT BACK OF THROAT; UNABLE TO WITH YANKER. ORAL CARE COMPLETED. REPOSITIONED; ATTENDS CHANGED. NO ACUTE CHANGES AT THIS TIME. REMAINS AT BEDSIDE. TM.
--- NOTE | 2020-05-09 01:47 | NUR ---
0147 COMFORT CARE APPEARS TO BE IN PAIN/DISCOMFORT PER ; MEDICATED PER EMAR. STATED THAT WHEN THIS RN IS ABLE TO SPEAK TO ON-CALL PROVIDER WILL GET ATROPINE DROPS. NO OTHER NEEDS AND DOES NOT REQUEST AT THIS TIME FOR PATIENT TO BE TURNED. BED IN LOWEST. WCTM.
--- NOTE | 2020-05-09 03:05 | NUR ---
4877 COMFORT CARE SPOKE TO ABOUT RECIEVING ORDER FOR ATROPINE FROM ONCALL PHYSICIAN; AGREEABLE. WILL RETURN TO INSTILL DROPS. NO ACUTE NEEDS AT THIS TIME. STATES PATIENT APPEARS MORE AT REST. WCTM.
--- NOTE | 2020-05-09 04:13 | NUR ---
0413 COMFORT CARE ARRIVED WITH ATROPINE DROPS EXPLAINED PURPOSE. ASKED IS PATIENT APPEARED UNCOMFORTABLE; MEDICATED PER EMAR. DID NOT WANT PATIENT REPOSITIONED AT THIS TIME. BED IN LOWEST POSITION. TM.
--- NOTE | 2020-05-09 04:25 | NUR ---
0425 OUT OF ROOM ASKING FOR ASSISTANCE; COWORKER CORBIN SELF WENT IN TO FIND OUT WHAT WAS GOING ON. STATES APPEARED TO BE CHOKING. CORBIN SELF ATTEMPTED TO SUCTION, BUT UNSUCCESSFUL. STATES SECRETIONS APPEAR TO BE LESSENING AND DENIED ANOTHER ATTEMPT AT SUCTION. WCTM.
--- NOTE | 2020-05-09 04:56 | NUR ---
SHIFT SUMMARY RESPONSIVE TO PAINFUL STIMULI. REPOSITIONED X1 THIS SHIFT; DENIED REPOSITIONING STATED THAT SHE WANTED HIM TO REMAIN COMFORTABLE. MEDICATED FOR PAIN/ANXIETY/SECRETIONS DURING THIS SHIFT; PER EMAR. NO ACUTE CHANGES. BED IN LOWEST POSITION. THORNTON SECURED AND DRAINING TO GRAIVTY. WCTM. REPORT TO ONCOMING RN.
--- NOTE | 2020-05-09 05:30 | NUR ---
0530 COMFORT CARE APPEARED TO BE RESTING. STATES OK TO GIVE ANOTHER DOSE OF ATROPINE. DID NOT APPEAR PAINFUL @ THIS TIME; AGREEABLE. STATES OK WITH NOT TURNING AT THIS TIME. NO OTHER NEEDS AT THIS TIME. BED REMAINS IN LOWEST POSITION. [facility].
--- NOTE | 2020-05-09 09:10 | NUR ---
[facility] CARE COMFORT CARE VISIT: Case conferenced with RN prior to visit. Assessed pt and indicators of s/s. Time spent educating on s/s we are seeing and what to anticipate. Pt appears imminent at this time. Respirations are shallow and wet. Pt's color is pallor. He is not showing any nonverbal indicators of pain or distress. is appropriately tearful and expresses gratitude for pt being here to receive EOL care. I encouraged self care and breaks. I thanked for being present and also providing excellent EOL care to her . Plan to return as needed t/o day. Daughter is due in shortly.
--- NOTE | 2020-05-09 10:41 | NUR ---
Second [facility] Care visit made after daughters arrived this am. No change in assessment from earlier. Time spent speaking with daughters about s/s to anticipate and explaining current status, symptoms they are seeing. Family is appreciative of the care he has received here.
--- NOTE | 2020-05-09 15:13 | NUR ---
Routine spiritual care note: I met with pt's and two dtrs at bedside. They appear tearful and loving. All in acceptance of Asim's decline. They explained how difficult his life has been for him--weakness, pain, unable to do ADLs. They also asked great questions about the dying process. I provided verbal education and provided booklets. Encouraged self-care. Family expressed appreciation for compassionate care by [facility] staff. Asim was non-responsive and appeared to be nearing end-of-life. No signs of distress or discomfort. Professor Of Oceanography services will remain available.
--- NOTE | 2020-05-09 17:21 | NUR ---
PT IS RESTING COMFORTABLEY AT THIS TIME WITH FAMILY AT BEDSIDE. PT TREATED FOR ANY PAIN PER EMAR TODAY. PT'S BREATHING IS CHANGING AND IS MORE DRAWN OUT SOUNDING A LITTLE MORE COURSE. FAMILY HAS BEEN EDUCATED ON HOW THE BREATHING CHANGES A PT GET CLOSER TO PASSING. FAMILY SEEMS TO BE COPING AT THIS TIME. WILL CONTINUE TO MONITOR PT'S COMFORT.
--- NOTE | 2020-05-09 19:47 | NUR ---
PATIENT ON COMFORT CARE. FAMILY PRESENT IN ROOM. LABORED BREATHING AT THIS TIME. FAMILY REFUSING PATIENT TO BE TURNED. CALL LIGHT IN REACH.
--- NOTE | 2020-05-10 05:01 | NUR ---
SHIFT SUMMARY PATIENT ON COMFORT CARE. NON-RESPONSIVE W/O EYE OPENINGS AND NON-VERBAL THIS SHIFT. FAMILY PRESENT FIRST PART OF SHIFT AND SPOUSE STAYED THE NIGHT. PATIENT RESTING AND RECEIVING ROXANOL FOR COMFORT AND ATROPINE DROPS FOR SECRETIONS T/O SHIFT. FAMILY REFUSED FOR PATIENT TO BE TURNED T/O SHIFT AND REQUESTED TO BE TURNED LAST HOUR. THORNTON PATENT WITH SCANT OUTPUT. CALL LIGHT IN REACH. BED IN LOWEST POSITION. WILL CONTINUE TO MONITOR UNTIL DAY SHIFT NURSE ASSUMES CARE.
--- NOTE | 2020-05-10 06:25 | NUR ---
PATIENT AT 06:12. HOSPITALIST DR SONI NOTIFIED. SPOUSE PRESENT IN ROOM AND FAMILY COMING IN. FAMILY WILL MAKE ARRANGEMENTS FOR A FACILITY.
--- NOTE | 2020-05-10 08:58 | NUR ---
RAW STOCK DRIER TENDER ABOUT 0612. RELATIVES NO LONGER IN ROOM. CHARGE NOTIFIED. IV TAKEN OUT, THORNTON TAKEN OUT.
== END 2020-05-10 06:12 | DRG 871 ==
LOC: ER 16:48 → MEDS 21:00 → PCU 21:00 → MEDS 05-06 15:56
PROVIDERS: Emergency Medicine; Family Medicine; Internal Medicine Endocrinology, Diabetes & Metabolism; Internal Medicine Gastroenterology; ADMIT Family Medicine
PROC: 0W9G30Z Drainage of Peritoneal Cavity with Drainage Device, Percutaneous Approach (ICD-10-PCS; 2020-05-03)
PROC: 0DJ08ZZ Inspection of Upper Intestinal Tract, Via Natural or Artificial Opening Endoscopic (ICD-10-PCS; principal; 2020-05-04 07:30)
PROC: 0DBL8ZX Excision of Transverse Colon, Via Natural or Artificial Opening Endoscopic, Diagnostic (ICD-10-PCS; 2020-05-05)
PROC: 0DBN8ZX Excision of Sigmoid Colon, Via Natural or Artificial Opening Endoscopic, Diagnostic (ICD-10-PCS; 2020-05-05)
PROC: 0DBH8ZX Excision of Cecum, Via Natural or Artificial Opening Endoscopic, Diagnostic (ICD-10-PCS; 2020-05-05)
PROC: 0DBK8ZX Excision of Ascending Colon, Via Natural or Artificial Opening Endoscopic, Diagnostic (ICD-10-PCS; 2020-05-05 07:30)
DX: A41.9 Sepsis, unspecified organism (principal); E43 Unspecified severe protein-calorie malnutrition; G93.41 Metabolic encephalopathy; J18.9 Pneumonia, unspecified organism; D65 Disseminated intravascular coagulation [defibrination syndrome]; E72.20 Disorder of urea cycle metabolism, unspecified; E87.1 Hypo-osmolality and hyponatremia; E87.2 Acidosis; N39.0 Urinary tract infection, site not specified; D62 Acute posthemorrhagic anemia; K76.6 Portal hypertension; K72.90 Hepatic failure, unspecified without coma; Z51.5 Encounter for palliative care; K70.31 Alcoholic cirrhosis of liver with ascites; I10 Essential (primary) hypertension; I25.10 Atherosclerotic heart disease of native coronary artery without angina pectoris; E78.5 Hyperlipidemia, unspecified; Z95.5 Presence of coronary angioplasty implant and graft; Z87.891 Personal history of nicotine dependence; Z86.711 Personal history of pulmonary embolism; K59.00 Constipation, unspecified; E87.6 Hypokalemia; D50.9 Iron deficiency anemia, unspecified; K44.9 Diaphragmatic hernia without obstruction or gangrene; Z68.29 Body mass index [BMI] 29.0-29.9, adult; I95.9 Hypotension, unspecified
CPT/HCPCS: 36415; 36430; 49083; 71045; 74176; 80048; 80053; 81001; 82040; 82042; 82140; 82803; 82945; 83605; 83615; 83735; 83880; 84145; 84157; 84443; 84484; 85014; 85018; 85025; 85610; 86850; 86900; 86901; 86923; 87040; 87070; 87077; 87086; 87186; 87205; 88305; 89051; 93005; 93010; 96374; 96375; 99285-25; A9270; A9270-GY; C1751; C9113; J0295; J0456; J0696; J1940; J2001; J2060; J2405; J2704; J3480; J7050; J7120; P9016; P9041; P9059